=== PATIENT | male | born 1970 | race Caucasian/White ===

== ENCOUNTER 2016-05-16 07:13 | Emergency (ER) | payer MEDICAID ==
[2016-05-16 07:18] VITALS: TEMP 98.1
--- NOTE | 2016-05-16 07:58 | EDPHY ---
H & P Stated Complaint: ATRAUMATIC L WRIST PAIN/SWELLING X2 DAYS HPI/ROS: CHIEF COMPLAINT: right hand swelling HISTORY OF PRESENT ILLNESS: The patient is a 45 y/o male complaining of atraumatic swelling in his right hand for the last 3 days. He reports his antidepressant medications were changed recently and during that time he relapsed on cocaine. He says he has been injecting cocaine for the last 2 weeks. He has sores along both forearms, but is only complaining about the swelling in his right hand and tenderness in his right wrist. He denies purulent drainage from any of the sores, but does note he has had some of them drained recently. He denies fever, chills, vomiting. REVIEW OF SYSTEMS: Constitutional: No fever, no chills Eyes: No visual changes ENT: No sore throat Respiratory: No cough, no shortness of breath Cardiac: No chest pain Gastrointestinal: No nausea, no vomiting, no abdominal pain Genitourinary: no dysuria Skin: see HPI Neurological: No headache Psychiatric: baseline depression Source: Patient - Personal History Current Tetanus/Diphtheria Vaccine: Yes Current Tetanus Diphtheria and Acellular Pertussis (TDAP): Yes - Medical/Surgical History PMH: Tetanus up-to-date. Depression Illicit drug abuse. Hx Asthma: No Hx Chronic Respiratory Disease: No Hx Diabetes: No Hx Cardiac Disease: No Hx Renal Disease: No Hx Cirrhosis: No Hx Alcoholism: No Hx HIV/AIDS: No Hx Splenectomy or Spleen Trauma: No Other PMH: PMH- DEPRESSION - Social History Smoking Status: Current every day smoker Additional Social History: Smoker. Reportedly sober for 10 years, relapsed onto (injectable?) cocaine two weeks ago. - Physical Exam Exam: General Appearance: Alert, well-appearing, disheveled Neurological: motor/sensory intact Skin: Right hand mildly swollen, Multiple sores to both forearms and dorsal aspects of hands without evidence of abscess. One sore to dorsal aspect of right hand that is mildly tender and erythematous without fluctuance. Extremities: Right wrist range of motion: extension with mild pain, flexion without pain. left wrist ROM without pain Psychiatric: Mood and affect normal Constitutional: Initial Vital Signs Temperature (C) 36.7 C 05/16/16 07:14 Heart Rate 80 05/16/16 07:14 Respiratory Rate 18 05/16/16 07:14 Blood Pressure 149/89 H 05/16/16 07:14 O2 Sat (%) 96 05/16/16 07:14 O2 Delivery Mode Room Air Allergies/Adverse Reactions: No Known Allergies Allergy (Unverified 05/16/16 07:15) Home Medications: Medication Instructions Recorded Abilify 05/16/16 Celexa 05/16/16 Cephalexin [Keflex (*)] 500 mg PO QID #40 cap 05/16/16 Sulfamethox/Tmp 800/160 mg 1 tab PO BID #20 tab 05/16/16 [Bactrim Ds] Wellbutrin 100mg (*) 05/16/16 Medical Decision Making ED Course/Re-evaluation: This is a 45 y/o male with a current history of illicit drug abuse presenting with a 3-day history of mild swelling and tenderness to his right hand and wrist likely secondary to injecting cocaine for the past two weeks. He has multiple sores to both forearms and dorsal aspects of his hands without evidence of drainable abscess. He is afebrile here and denies any systemic complaints. Because he is an IV drug user he is at elevated risk for MRSA. I will discharge him on Keflex and Bactrim for cellulitis with specific return precautions. He's also been referred to [facility] to establish care and follow up as needed. He is comfortable with this plan. - Data Points Medications Given: Discontinued Medications Cephalexin HCl (Keflex) 500 mg PO EDNOW ONE PRN Reason: Protocol Stop: 05/16/16 08:13 Last Admin: 05/16/16 08:18 Dose: 500 mg Trimethoprim/Sulfamethoxazole (Bactrim Ds) 1 ea PO EDNOW ONE PRN Reason: Protocol Stop: 05/16/16 08:13 Last Admin: 05/16/16 08:18 Dose: 1 ea Departure - Departure Disposition: Home, Routine, Self-Care Clinical Impression: Cellulitis Qualifiers: Site of cellulitis: extremity Site of cellulitis of extremity: upper extremity Laterality: right Qualifier Code: (L03.113) Cellulitis of right upper limb Condition: Good Instructions: Cellulitis (ED) Additional Instructions: 1. Take Keflex and Bactrim as prescribed. Be sure to finish the entire prescription as directed even if you feel better. 2. Elevate right hand and keep splint in place when possible. Minimize use while healing. 3. Wash with soap and water minimum of 4 times daily. Apply Neosporin after washing. 4. Follow up with [facility] in 3-4 days. 5. Return to the ED for any worsening of symptoms including fever, dramatic increase in redness, swelling, or pain. Referrals: [facility] [Outside] - As per Instructions Prescriptions: Sulfamethox/Tmp 800/160 mg [Bactrim Ds] 1 tab PO BID #20 tab Cephalexin [Keflex (*)] 500 mg PO QID #40 cap Report Scribed for: Hanna Sweet Report Scribed by: Arelis Putnam Date of Report: 05/16/16 Time of Report: 07:20 Physician Review and Approval Statement: 05/16/16 07:21 Portions of this note were transcribed by a medical investigator. I personally performed a history, physical exam, medical decision making, and confirmed accuracy of information the transcribed note.
[2016-05-16] MEDS ORDERED: CEPHALEXIN 500 MG CAP PO ONE (08:12)
[2016-05-16] MEDS ORDERED: SULFAMETHOX/TMP 800/160 MG 1 TAB PO ONE (08:12)
[2016-05-16 08:20] VITALS: BP 152/102; PULSE 72; RESP 16; O2SAT 94
== END 2016-05-16 08:18 | disposition home or self-care (01) ==
DX: L03.113 Cellulitis of right upper limb (principal); F17.200 Nicotine dependence, unspecified, uncomplicated